=== PATIENT | female | born 1940 | race Caucasian/White ===

== ENCOUNTER 2017-07-27 14:05 | Emergency (ER) | payer MEDICARE ==
--- NOTE | 2017-07-27 16:01 | RAD REPORT ---
EXAM DESCRIPTION: RAD - Chest Single View - 07/27/2017 2:55 pm CLINICAL HISTORY: Cough and congestion COMPARISON: None. TECHNIQUE: AP portable chest image was obtained 1442 hours . FINDINGS: Lungs are clear. Lung markings are mildly prominent believed to be baseline. No vascular e ngorgement. Heart size is upper normal. No pneumothorax or pleural effusion. No acute bone finding. N o acute aortic findings suspected. IMPRESSION: Borderline cardiomegaly with no failure or volume overload. Mild baseline prominence of the interstitial markings with no focal infiltrate or mass.
--- NOTE | 2017-07-27 16:16 | EDPHYS ---
Physician Documentation [facility] Name: Leslie Coon Age: 77 yrs Sex: Female : 1940 Arrival Date: 07/27/2017 Time: 14:08 Bed 20 Private MD: ED Physician Simone Flynn HPI: 07/27 14:46 This 77 yrs old Female presents to ER via Ambulatory with complaints of Sinus kb Congestion, Sore Throat. 14:46 The patient or guardian reports cough, that is intermittent, described as mild, with no kb sputum, flu symptoms, low-grade fever. The patient has not experienced similar symptoms in the past. The patient has not recently seen a physician. 14:46 Onset: The symptoms/episode began/occurred 4 day(s) ago. Severity of symptoms: At their kb worst the symptoms were mild, moderate, in the emergency department the symptoms are unchanged. Modifying factors: The symptoms are alleviated by nothing, the symptoms are aggravated by nothing. Associated signs and symptoms: Pertinent positives: fever, rhinorrhea, sore throat, Pertinent negatives: chest pain, diarrhea, ear ache, nausea, vomiting. Historical: - Allergies: 14:13 Hydrocodone-Acetaminophen; aj - Home Meds: 14:13 None [Active]; aj - PMHx: 14:13 None; aj - PSHx: 14:13 Hysterectomy; Cholecystectomy; aj - Immunization history:: Adult Immunizations up to date. - Social history:: Smoking status: Patient/guardian denies using tobacco. ROS: 14:45 Constitutional: Negative for fever, chills, and weight loss, Cardiovascular: Negative kb for chest pain, palpitations, and edema, Abdomen/GI: Negative for abdominal pain, nausea, vomiting, diarrhea, and constipation, : Negative for injury, bleeding, discharge, and swelling, MS/Extremity: Negative for injury and deformity, Skin: Negative for injury, rash, and discoloration, Neuro: Negative for headache, weakness, numbness, tingling, and seizure. 14:45 ENT: Positive for rhinorrhea, sinus congestion, sore throat. 14:45 Respiratory: Positive for cough, Negative for dyspnea on exertion, hemoptysis, orthopnea, pleurisy, shortness of breath, sputum production, wheezing. Exam: 14:45 Constitutional: This is a well developed, well nourished patient who is awake, alert, kb and in no acute distress. Head/Face: Normocephalic, atraumatic. ENT: Nares patent. No nasal discharge, no septal abnormalities noted. Tympanic membranes are normal and external auditory canals are clear. Oropharynx with no redness, swelling, or masses, exudates, or evidence of obstruction, uvula midline. Mucous membranes moist. Neck: Trachea midline, no thyromegaly or masses palpated, and no cervical lymphadenopathy. Supple, full range of motion without nuchal rigidity, or vertebral point tenderness. No Meningismus. Chest/axilla: Normal chest wall appearance and motion. Nontender with no deformity. No lesions are appreciated. Cardiovascular: Regular rate and rhythm with a normal S1 and S2. No gallops, murmurs, or rubs. Normal PMI, no JVD. No pulse deficits. Respiratory: Lungs have equal breath sounds bilaterally, clear to auscultation and percussion. No rales, rhonchi or wheezes noted. No increased work of breathing, no retractions or nasal flaring. Abdomen/GI: Soft, non-tender, with normal bowel sounds. No distension or tympany. No guarding or rebound. No evidence of tenderness throughout. Skin: Warm, dry with normal turgor. Normal color with no rashes, no lesions, and no evidence of cellulitis. MS/ Extremity: Pulses equal, no cyanosis. Neurovascular intact. Full, normal range of motion. Neuro: Awake and alert, GCS 15, oriented to person, place, time, and situation. Cranial nerves II-XII grossly intact. Motor strength 5/5 in all extremities. Sensory grossly intact. Cerebellar exam normal. Normal gait. Vital Signs: 14:13 BP 167 / 88; Pulse 89; Resp 17; Temp 97.9; Pulse Ox 98% on R/A; Weight 73.94 kg; Height aj 5 ft. 5 in. (165.10 cm); Pain 0/10; 14:13 Body Mass Index 27.12 (73.94 kg, 165.10 cm) aj MDM: 14:18 Patient medically screened. kb 14:45 Data reviewed: vital signs, nurses notes. Data interpreted: Pulse oximetry: on room air kb is 98 %. Interpretation: normal. 16:14 Counseling: I had a detailed discussion with the patient and/or guardian regarding: the kb historical points, exam findings, and any diagnostic results supporting the discharge/admit diagnosis, lab results, radiology results, the need for outpatient follow up, a family practitioner, to return to the emergency department if symptoms worsen or persist or if there are any questions or concerns that arise at home. 04 14:29 Order name: Flu; Complete Time: 14:56 kb 04 14:29 Order name: Strep; Complete Time: 14:56 kb 07/27 14:29 Order name: Chest Single View XRAY; Complete Time: 16:01 kb 07/27 14:56 Order name: Throat Culture EDMS Administered Medications: No medications were administered Disposition: 07/28 08:05 Co-signature as Attending Physician, Simone Flynn MD I agree with the assessment and wa plan of care. Disposition: 07/27/17 16:15 Discharged to Home. Impression: Acute upper respiratory infection, unspecified. - Condition is Stable. - Discharge Instructions: Upper Respiratory Infection, Adult, [id number]. - Medication Reconciliation Form, Thank You Letter, Antibiotic Education, Prescription Opioid Use form. - Follow up: Emergency Department; When: As needed; Reason: Worsening of condition. Follow up: Private Physician; When: 2 - 3 days; Reason: Recheck today's complaints, Continuance of care, Re-evaluation by your physician. - Notes: Use Flonase and a 24 hour antihistamine with decongestant (Francoise D, Zyrtec D,or Claritin D)as directed. Signatures: Dispatcher [employer] EDSusana Tan, CANVAS WORKER-C CANVAS WORKER-Rachele Zamora RN RN aj Smirch, Shelby, RN RN ss Appiah, William, MD MD wa
--- NOTE | 2017-07-27 16:16 | ER ---
Nurse's Notes [facility] Name: Leslie Coon Age: 77 yrs Sex: Female : 1940 Arrival Date: 07/27/2017 Time: 14:08 Bed 20 Private MD: Diagnosis: Acute upper respiratory infection, unspecified Presentation: 07/27 14:12 Presenting complaint: Patient states: Productive cough and sore throat for 4 days. aj Patient did not contact PCP for appointment. Transition of care: patient was not received from another setting of care. Onset of symptoms was July 24, 2017. Care prior to arrival: None. 14:12 Method Of Arrival: Ambulatory 14:12 Acuity: CARLOS 4 aj Triage Assessment: 14:13 General: Appears in no apparent distress. comfortable, Behavior is calm, cooperative, aj appropriate for age. Pain: Denies pain. EENT: Reports nasal congestion nasal discharge pain when swallowing. Neuro: Level of Consciousness is awake, alert, obeys commands, Oriented to person, place, time, situation. Respiratory: Reports cough that is Airway is patent Respiratory effort is even, unlabored, Respiratory pattern is regular, symmetrical. Derm: Skin is intact, is healthy with good turgor, Skin is pink, warm \T\ dry. normal. Historical: - Allergies: 14:13 Hydrocodone-Acetaminophen; aj - Home Meds: 14:13 None [Active]; aj - PMHx: 14:13 None; aj - PSHx: 14:13 Hysterectomy; Cholecystectomy; aj - Immunization history:: Adult Immunizations up to date. - Social history:: Smoking status: Patient/guardian denies using tobacco. Screenin:31 Abuse screen: Denies threats or abuse. Denies injuries from another. Abuse screen: ss Denies threats or abuse. Denies injuries from another. Nutritional screening: No deficits noted. Tuberculosis screening: Never had TB. Fall Risk None identified. Assessment: 14:31 General: Appears in no apparent distress. comfortable, Behavior is calm, cooperative, ss Denies fever, feeling ill, fatigue, chills. Pain: Denies pain. Neuro: Level of Consciousness is awake, alert, obeys commands, Oriented to person, place, time, situation. Cardiovascular: Capillary refill < 3 seconds is brisk in bilateral fingers Patient's skin is warm and dry. Respiratory: Airway is patent Respiratory effort is even, unlabored, Respiratory pattern is regular, symmetrical, Breath sounds are clear bilaterally. Respiratory: Reports cough that is was productive a week ago, now not productive Denies shortness of breath pain with respiration, pain with cough, pain with movement. GI: No signs and/or symptoms were reported involving the gastrointestinal system. Patient currently denies abdominal pain. : No signs and/or symptoms were reported regarding the genitourinary system. EENT: Throat is reddened. Derm: Skin is intact, is healthy with good turgor, Skin is pink, warm \T\ dry. Musculoskeletal: Circulation, motion, and sensation intact. Capillary refill < 3 seconds, is brisk, in bilateral fingers. Range of motion: intact in all extremities, Swelling absent. Vital Signs: 14:13 BP 167 / 88; Pulse 89; Resp 17; Temp 97.9; Pulse Ox 98% on R/A; Weight 73.94 kg; Height aj 5 ft. 5 in. (165.10 cm); Pain 0/10; 14:13 Body Mass Index 27.12 (73.94 kg, 165.10 cm) aj ED Course: 14:08 Patient arrived in ED. as 14:13 Triage completed. aj 14:13 Arm band placed on left wrist. Patient placed in an exam room, on a stretcher. aj 14:18 Susana Machuca [facility]-C [facility]. kb 14:18 Simone Flynn MD is Attending Physician. kb 14:30 Amanda Reina, CONTRERAS is Primary Nurse. ss 14:31 Patient has correct armband on for positive identification. Bed in low position. Call ss light in reach. 14:35 Strep Sent. ss 14:35 Flu Sent. ss 14:51 X-ray completed. Portable x-ray completed in exam room. ml 14:56 Chest Single View XRAY In Process Unspecified. EDMS 16:42 No provider procedures requiring assistance completed. Patient did not have IV access ss during this emergency room visit. Administered Medications: No medications were administered Outcome: 16:15 Discharge ordered by . kb 16:42 Discharged to home ambulatory, with family. ss 16:42 Condition: good 16:42 Discharge instructions given to patient, family, Instructed on discharge instructions, follow up and referral plans. medication usage, Demonstrated understanding of instructions, follow-up care, medications. 16:42 Patient left the ED. ss Signatures: Dispatcher [employer] Susana Fallon, [place] BARFIELD-Rachele Zamora, RN RN Azul Lowery Melissa ml Smirch, Shelby, CONTRERAS CHAIREZ ss Corrections: (The following items were deleted from the chart) 14:15 14:13 Arm band placed on left wrist. Patient placed in waiting room, Patient notified aj of wait time aj
== END 2017-07-27 16:42 | disposition home or self-care (01) ==
LOC: ER 14:05
DX: J06.9 Acute upper respiratory infection, unspecified (principal); Z88.5 Allergy status to narcotic agent
CPT/HCPCS: 71045; 87070; 87081; 87804; 99283